=== PATIENT | male | born 1945 | race Caucasian/White ===

== ENCOUNTER 2019-06-26 15:43 | Inpatient (IN) ==
[2019-06-26 17:07] LABS: Basophils % 0.6 %; Hematocrit 28.3 % (37.5-50.1); Hemoglobin 9.7 g/dL (12.9-16.9); Immature Granulocytes % 1.3 % (0-4); Lymphocytes # 0.3 K/mcL (0.6-4.6); Lymphocytes % 10.2 %; Mean Corpuscular HGB Conc 34.3 g/dL (31.6-35.5); Mean Corpuscular Hemoglobin 29.3 pg (28.0-33.3); Mean Corpuscular Volume 85.5 fL (83.0-100.0); Mean Platelet Volume 10.2 fL (9.4-12.4); Monocytes # 0.5 K/mcL (0.0-1.3); Monocytes % 17.1 %; Neutrophils # 2.2 K/mcL (1.6-8.9); Platelet Count 144 K/mcL (140-400); Red Blood Count 3.31 M/mcL (4.19-5.50); Red Cell Distribution Width 15.9 % (11.5-14.5); Segmented Neutrophils % 69.8 %; White Blood Count 3.2 K/mcL (4.3-11.1)
[2019-06-26 17:10] LABS: INR 1.1; Prothrombin Time 12.9 Seconds (9.4-12.1)
[2019-06-26 17:12] LABS: Activated Partial Thrombo Time 24.4 Seconds (26.0-36.0)
[2019-06-26 17:33] LABS: Troponin I 0.04 ng/mL (< 0.04)
[2019-06-26 17:36] LABS: BUN/Creatinine Ratio 25 (6-26); Blood Urea Nitrogen 27 mg/dL (8-23); Calcium 8.8 mg/dL (8.6-10.3); Carbon Dioxide 23 mEq/L (23-29); Chloride 104 mEq/L (98-107); Glucose 105 mg/dL (70-105); Osmolality,Calculated 287 (280-300); Potassium 3.6 mEq/L (3.5-5.1); Sodium 136 mEq/L (136-145); eGFR For African Americans > 60 (> 60); eGFR For Non-African Americans > 60 (> 60)
[2019-06-26] MEDS ORDERED: Naloxone 0.4 MG/ML INJ IVP PRN (17:55)
[2019-06-26 18:06] LABS: Clarity,Urine Clear (Clear); Color,Urine Yellow (Yellow)
[2019-06-26 18:07] LABS: Bilirubin,Urine Negative (Negative); Blood,Urine Negative (Negative); Glucose,Urine (UA) Normal (Normal); Ketones,Urine Negative (Negative); Leukocyte Esterase,Urine Negative (Negative); Nitrite,Urine Negative (Negative); PH,Urine 5.5 pH Units (5.0-8.0); Protein,Urine 30 mg/dL (Neg-Trace); Specific Gravity,Urine 1.027 (1.010-1.025); Squamous Epithelial Cell,Urine Few per lpf (None-Few); Urobilinogen,Urine Normal (Normal)
[2019-06-26] MEDS ORDERED: Ipratropium/Albuterol Neb 3 ML IH PRN (18:31)
[2019-06-26] MEDS: Budesonide/Formoterol 160/4.5 1 PUFF INH IH SCH (22:01)
[2019-06-27 02:01] LABS: Basophils % 0.4 %; Eosinophils % 0.8 %; Hematocrit 24.9 % (37.5-50.1); Hemoglobin 8.7 g/dL (12.9-16.9); Immature Granulocytes % 1.2 % (0-4); Lymphocytes # 0.3 K/mcL (0.6-4.6); Lymphocytes % 10.6 %; Mean Corpuscular HGB Conc 34.9 g/dL (31.6-35.5); Mean Corpuscular Hemoglobin 29.8 pg (28.0-33.3); Mean Corpuscular Volume 85.3 fL (83.0-100.0); Mean Platelet Volume 10.2 fL (9.4-12.4); Monocytes # 0.4 K/mcL (0.0-1.3); Monocytes % 17.3 %; Neutrophils # 1.8 K/mcL (1.6-8.9); Platelet Count 129 K/mcL (140-400); Red Blood Count 2.92 M/mcL (4.19-5.50); Segmented Neutrophils % 69.7 %; White Blood Count 2.5 K/mcL (4.3-11.1)
[2019-06-27 02:21] LABS: BUN/Creatinine Ratio 22 (6-26); Blood Urea Nitrogen 25 mg/dL (8-23); Calcium 8.3 mg/dL (8.6-10.3); Carbon Dioxide 25 mEq/L (23-29); Chloride 105 mEq/L (98-107); Chol/HDL Ratio 6.1 (0-4.9); Cholesterol 129 mg/dL (< 200); Glucose 105 mg/dL (70-105); HDL Cholesterol 21 mg/dL (40-59); LDL Cholesterol,Calculated 78 mg/dL (0-99); Magnesium 1.6 mg/dL (1.6-2.6); Osmolality,Calculated 289 (280-300); Potassium 3.5 mEq/L (3.5-5.1); Sodium 137 mEq/L (136-145); Triglycerides 149 mg/dL (< 150); eGFR For African Americans > 60 (> 60); eGFR For Non-African Americans > 60 (> 60)
[2019-06-27] MEDS ORDERED: *HR* Heparin 5,000 UNIT/ML VIAL SQ SCH (06:00)
[2019-06-27] MEDS: Budesonide/Formoterol 160/4.5 1 PUFF INH IH SCH ×2 (08:23→19:59)
[2019-06-27] MEDS ORDERED: Loratadine 10 MG TABLET PO PRN (13:10)
[2019-06-27] MEDS: Pantoprazole 40 MG VIAL IVP SCH (13:28)
[2019-06-27] MEDS ORDERED: 0.9 % Sodium Chloride 1,000 ML IVC SCH (17:15)
[2019-06-28 05:03] LABS: Basophils % 0.4 %; Eosinophils % 0.4 %; Hematocrit 25.3 % (37.5-50.1); Hemoglobin 8.5 g/dL (12.9-16.9); Immature Granulocytes % 1.8 % (0-4); Lymphocytes # 0.3 K/mcL (0.6-4.6); Lymphocytes % 12.4 %; Mean Corpuscular HGB Conc 33.6 g/dL (31.6-35.5); Mean Corpuscular Hemoglobin 29.9 pg (28.0-33.3); Mean Corpuscular Volume 89.1 fL (83.0-100.0); Monocytes # 0.3 K/mcL (0.0-1.3); Monocytes % 15.1 %; Neutrophils # 1.6 K/mcL (1.6-8.9); Platelet Count 126 K/mcL (140-400); Red Blood Count 2.84 M/mcL (4.19-5.50); Red Cell Distribution Width 15.9 % (11.5-14.5); Segmented Neutrophils % 69.9 %; White Blood Count 2.3 K/mcL (4.3-11.1)
[2019-06-28 05:20] LABS: BUN/Creatinine Ratio 18 (6-26); Blood Urea Nitrogen 19 mg/dL (8-23); Calcium 8.3 mg/dL (8.6-10.3); Carbon Dioxide 25 mEq/L (23-29); Chloride 103 mEq/L (98-107); Glucose 106 mg/dL (70-105); Magnesium 1.7 mg/dL (1.6-2.6); Osmolality,Calculated 285 (280-300); Potassium 3.7 mEq/L (3.5-5.1); Sodium 136 mEq/L (136-145); eGFR For African Americans > 60 (> 60); eGFR For Non-African Americans > 60 (> 60)
[2019-06-28 07:21] VITALS: BP 137/71
[2019-06-28] MEDS: Budesonide/Formoterol 160/4.5 1 PUFF INH IH SCH (07:59)
[2019-06-28] MEDS ORDERED: Multivit/Ca/Min/Fe/FA 1 TAB TABLET PO SCH (09:00)
[2019-06-28] MEDS: Pantoprazole 40 MG VIAL IVP SCH (09:11)
== END 2019-06-28 10:45 | disposition home or self-care (01) | DRG 280 ==
LOC: 3BNU 15:43 → EMEROOARM 15:43 → 3BNU 19:59 → SUATTDRO 06-27 14:02
PROVIDERS: ADMIT Internal Medicine; ATTEND Internal Medicine

== ENCOUNTER 2021-05-06 06:28 | Inpatient (IN) ==
[2021-05-06] MEDS ORDERED: Acetaminophen 325 MG TABLET PO PRN (13:56)
[2021-05-06] MEDS ORDERED: Mag Hydrox/Al Hydrox/Simeth 30 ML UDC PO PRN (13:56)
[2021-05-06] MEDS ORDERED: Naloxone 0.4 MG/ML INJ IVP PRN (13:56)
[2021-05-06] MEDS ORDERED: MOM Conc 10 ML UD.LIQ PO PRN (13:56)
[2021-05-06] MEDS ORDERED: Ondansetron 4 MG/2 ML VIAL IVP PRN (13:56)
[2021-05-06] MEDS ORDERED: Morphine Sulfate 2 MG/ML SYRINGE IVP PRN (13:58)
[2021-05-06] MEDS ORDERED: Ipratropium/Albuterol Neb 3 ML IH PRN (17:14)
[2021-05-06] MEDS: Budesonide/Formoterol 80/4.5 1 PUFF INH IH SCH ×2 (20:47→20:48)
[2021-05-06] MEDS: Pregabalin 75 MG CAPSULE PO SCH (20:59)
[2021-05-06] MEDS ORDERED: Mirtazapine 15 MG TABLET PO SCH (21:00)
[2021-05-07 01:49] LABS: Red Cell Distribution Width 13.7 % (11.5-14.5)
[2021-05-07 01:51] LABS: Hematocrit 39.5 % (37.5-50.1); Hemoglobin 12.7 g/dL (12.9-16.9); Immature Platelets 4.1 % (1.1-6.1); Mean Corpuscular HGB Conc 32.2 g/dL (31.6-35.5); Mean Corpuscular Hemoglobin 28.7 pg (28.0-33.3); Mean Corpuscular Volume 89.2 fL (83.0-100.0); Red Blood Count 4.43 M/mcL (4.19-5.50); White Blood Count 8.4 K/mcL (4.3-11.1)
[2021-05-07 02:05] LABS: BUN/Creatinine Ratio 13 (6-26); Blood Urea Nitrogen 16 mg/dL (8-23); Calcium 8.3 mg/dL (8.6-10.3); Carbon Dioxide 26 mEq/L (23-29); Chloride 103 mEq/L (98-107); Glucose 148 mg/dL (70-105); Magnesium 1.8 mg/dL (1.6-2.6); Osmolality,Calculated 282 (280-300); Potassium 4.9 mEq/L (3.5-5.1); Sodium 134 mEq/L (136-145); eGFR For African Americans > 60 (> 60); eGFR For Non-African Americans 59 (> 60)
[2021-05-07] MEDS ORDERED: *HR* Enoxaparin 40 MG/0.4 ML SYRINGE SQ SCH (06:00)
[2021-05-07] MEDS ORDERED: Ethanol\\Acetic Acid\\Na Ace\\Ben 1,000 ML IRRIG.SOLN IR ONE (07:07)
[2021-05-07] MEDS ORDERED: *HR* Succinylcholine 200 MG/10 ML VIAL IVP ONE (07:12)
[2021-05-07] MEDS ORDERED: Lidocaine HCL 4 ML Topical Solution (Laryng-O-Jet Kit Sterile Pak) TP ONE (07:12)
[2021-05-07] MEDS ORDERED: *HR* FentaNYL (PF) 100 MCG/2 ML VIAL ONE ×2 (07:12→09:16)
[2021-05-07] MEDS ORDERED: Ondansetron 4 MG/2 ML VIAL ONE (07:12)
[2021-05-07] MEDS ORDERED: Lidocaine -MPF 2% 5 ML VIAL ONE (07:12)
[2021-05-07] MEDS ORDERED: *HR* Rocuronium Bromide 50 MG/5 ML VIAL ONE (07:12)
[2021-05-07] MEDS ORDERED: *HR* Propofol 200 MG/20 ML VIAL IVP ONE (07:12)
[2021-05-07] MEDS ORDERED: Albuterol 2.5 MG/3 ML NEBULIZER IH PRN (07:39)
[2021-05-07] MEDS ORDERED: Ondansetron 4 MG/2 ML VIAL IVP PRN ×2 (07:39→16:00)
[2021-05-07] MEDS ORDERED: *HR* FentaNYL (PF) 100 MCG/2 ML VIAL IVP PRN (07:39)
[2021-05-07] MEDS ORDERED: Nitroglycerin 0.4 MG TAB.SUBL SL PRN ×2 (07:39→16:00)
[2021-05-07] MEDS ORDERED: *HR* HYDROmorphone (PF) 1 MG/ML SYRINGE IVP PRN (07:39)
[2021-05-07] MEDS ORDERED: Naloxone 0.4 MG/ML INJ IVP PRN ×3 (07:39→16:00)
[2021-05-07] MEDS ORDERED: Acetaminophen IV 1,000 MG/100 ML BAG IVPB ONE ×2 (07:40→16:00)
[2021-05-07] MEDS: Budesonide/Formoterol 80/4.5 1 PUFF INH IH SCH ×2 (07:48→20:32)
[2021-05-07] MEDS ORDERED: Vancomycin 1,000 MG VIAL ONE (07:54)
[2021-05-07] MEDS ORDERED: EPHEDrine 50 MG/ML VIAL ONE (08:40)
[2021-05-07] MEDS ORDERED: Sugammadex Sodium 200 MG/2 ML VIAL IV ONE (09:48)
[2021-05-07] MEDS: Pregabalin 75 MG CAPSULE PO SCH ×2 (12:28→21:14)
[2021-05-07] MEDS: Ipratropium/Albuterol Neb 3 ML IH SCH ×2 (13:38→16:02)
[2021-05-07] MEDS ORDERED: MOM Conc 10 ML UD.LIQ PO PRN (16:00)
[2021-05-07] MEDS ORDERED: Morphine Sulfate 2 MG/ML SYRINGE IVP PRN (16:00)
[2021-05-07] MEDS ORDERED: Acetaminophen 325 MG TABLET PO PRN (16:00)
[2021-05-07] MEDS ORDERED: Mag Hydrox/Al Hydrox/Simeth 30 ML UDC PO PRN (16:00)
[2021-05-07] MEDS: CeFAZolin 2 GM/120 ML BAG IVPB SCH ×2 (17:20→23:58)
[2021-05-07] MEDS: Mirtazapine 15 MG TABLET PO SCH (21:15)
[2021-05-08 05:20] LABS: Basophils % 0.2 %; Eosinophils # 0.3 K/mcL (0.0-0.6); Eosinophils % 4.9 %; Hematocrit 34.1 % (37.5-50.1); Hemoglobin 10.9 g/dL (12.9-16.9); Immature Granulocytes % 0.5 % (0-4); Immature Platelets 5.7 % (1.1-6.1); Lymphocytes # 0.5 K/mcL (0.6-4.6); Lymphocytes % 7.6 %; Mean Corpuscular Hemoglobin 28.5 pg (28.0-33.3); Mean Corpuscular Volume 89.3 fL (83.0-100.0); Mean Platelet Volume 10.8 fL (9.4-12.4); Monocytes # 0.4 K/mcL (0.0-1.3); Monocytes % 5.9 %; Neutrophils # 5.3 K/mcL (1.6-8.9); Red Blood Count 3.82 M/mcL (4.19-5.50); Red Cell Distribution Width 13.5 % (11.5-14.5); Segmented Neutrophils % 80.9 %; White Blood Count 6.6 K/mcL (4.3-11.1)
[2021-05-08 05:21] LABS: Platelet Count 99 K/mcL (140-400)
[2021-05-08 05:31] LABS: BUN/Creatinine Ratio 19 (6-26); Blood Urea Nitrogen 25 mg/dL (8-23); Calcium 8.4 mg/dL (8.6-10.3); Carbon Dioxide 27 mEq/L (23-29); Chloride 103 mEq/L (98-107); Glucose 122 mg/dL (70-105); Osmolality,Calculated 288 (280-300); Potassium 4.4 mEq/L (3.5-5.1); Sodium 136 mEq/L (136-145); eGFR For African Americans > 60 (> 60); eGFR For Non-African Americans 52 (> 60)
[2021-05-08] MEDS: Budesonide/Formoterol 80/4.5 1 PUFF INH IH SCH (07:28)
[2021-05-08] MEDS ORDERED: 0.9 % Sodium Chloride 1,000 ML IVC SCH (07:30)
[2021-05-08] MEDS: Ipratropium/Albuterol Neb 3 ML IH SCH ×2 (09:16→16:46)
[2021-05-08] MEDS: Pregabalin 75 MG CAPSULE PO SCH ×2 (09:28→20:43)
[2021-05-08] MEDS: Aspirin Enteric Coated 325 MG Tablet PO SCH (09:28)
[2021-05-08] MEDS ORDERED: Aspirin 81 MG TAB.CHEW PO SCH (09:45)
[2021-05-08] MEDS: Mirtazapine 15 MG TABLET PO SCH (20:43)
[2021-05-09] MEDS: Ipratropium/Albuterol Neb 3 ML IH SCH ×4 (00:24→15:26)
[2021-05-09] MEDS: Budesonide/Formoterol 80/4.5 1 PUFF INH IH SCH ×2 (00:24→11:11)
[2021-05-09] MEDS ORDERED: Lidocaine Jelly 11 ml Syringe MM ONE (01:31)
[2021-05-09] MEDS: Aspirin Enteric Coated 325 MG Tablet PO SCH (08:53)
[2021-05-09] MEDS: Pregabalin 75 MG CAPSULE PO SCH (10:01)
[2021-05-09 10:31] LABS: Basophils % 0.2 %; Eosinophils # 0.4 K/mcL (0.0-0.6); Eosinophils % 6.6 %; Hematocrit 35.2 % (37.5-50.1); Hemoglobin 11.3 g/dL (12.9-16.9); Immature Granulocytes % 0.6 % (0-4); Lymphocytes # 0.7 K/mcL (0.6-4.6); Lymphocytes % 11.5 %; Mean Corpuscular HGB Conc 32.1 g/dL (31.6-35.5); Mean Corpuscular Hemoglobin 28.9 pg (28.0-33.3); Mean Platelet Volume 10.2 fL (9.4-12.4); Monocytes # 0.5 K/mcL (0.0-1.3); Monocytes % 7.6 %; Neutrophils # 4.5 K/mcL (1.6-8.9); Platelet Count 106 K/mcL (140-400); Red Blood Count 3.91 M/mcL (4.19-5.50); Red Cell Distribution Width 13.9 % (11.5-14.5); Segmented Neutrophils % 73.5 %; White Blood Count 6.2 K/mcL (4.3-11.1)
[2021-05-09 10:50] LABS: BUN/Creatinine Ratio 19 (6-26); Blood Urea Nitrogen 21 mg/dL (8-23); Calcium 8.2 mg/dL (8.6-10.3); Carbon Dioxide 28 mEq/L (23-29); Chloride 105 mEq/L (98-107); Glucose 87 mg/dL (70-105); Osmolality,Calculated 292 (280-300); Sodium 140 mEq/L (136-145); eGFR For African Americans > 60 (> 60); eGFR For Non-African Americans > 60 (> 60)
[2021-05-09 11:10] VITALS: BP 134/76; PULSE 74; TEMP 97.8
[2021-05-09 14:25] LABS: Influenza A PCR Negative (Negative); Influenza B PCR Negative (Negative); Resp. Syncytial Virus PCR Negative (Negative); SARS-CoV-2 by PCR (In House) Negative (Negative)
[2021-05-09 15:28] VITALS: O2SAT 95
== END 2021-05-09 16:20 | DRG 522 ==
LOC: 4WAOSI → SUATTDRO 13:56
PROVIDERS: ADMIT Internal Medicine; ATTEND Family Medicine